=== PATIENT | female | born 1980 | race Caucasian/White ===

== ENCOUNTER 2017-06-27 09:02 | Outpatient (CLI) | payer OTHER | END 2017-06-27 09:03 | disposition home or self-care (01) | LOC: BICMAMMO 09:02 | PROVIDERS: ATTEND Obstetrics & Gynecology | DX: N64.4 Mastodynia (principal); Z98.82 Breast implant status | CPT/HCPCS: 77066; G0279 ==

== ENCOUNTER 2018-03-27 23:46 | Emergency (ER) | payer BC ==
[2018-03-28 01:10] LABS: Bilirubin Negative (Negative); Blood, Urine Trace (Negative); Clarity CLEAR (Clear); Glucose, Urine (Dipstick) Negative (Negative); Leukocyte Negative (Negative); Nitrite Negative (Negative); Protein, Urine (Dipstick) Negative (Neg-Trace); Specific Gravity, Urine 1.022 (1.002-1.036); pH, Urine 6.5 (5.0-9.0)
[2018-03-28 01:11] LABS: Pregnancy Test - Urine (BHCG) Negative (Negative); Pregu Control Background? CLEAR/WHITE (CLR/WHITE); Pregu Control Bar Appear? YES (CONTROL BAR); Specific Gravity 1.022 (1.002-1.036)
[2018-03-28 01:12] LABS: Bacteria/HPF 1+ HPF (None Seen); Hyaline Casts/LPF 0-3 HYALINE CAST LPF (0-3 Hyaline); Pathc Cast-AUWi Flag 0.14 (0-2.49); WBC/HPF 0-3 HPF (0-3)
[2018-03-28] MEDS ORDERED: Cyclobenzaprine 10 MG TAB ONE (01:30)
--- NOTE | 2018-03-28 08:35 | RAD ---
PA AND LATERAL VIEWS CHEST: Date: 03/28/18 HISTORY: Dyspnea. FINDINGS: Comparison made with exam of 08/30/14. The heart size is borderline. The lungs are expanded without focal areas of consolidation, pneumothor ax, odell pulmonary edema, or pleural effusions. No acute osseous abnormalities are seen. IMPRESSION: No radiographic evidence of acute cardiopulmonary process. POS: [facility]
== END 2018-03-28 01:41 | disposition home or self-care (01) ==
LOC: ERS 23:46
DX: M54.9 Dorsalgia, unspecified (principal); R06.00 Dyspnea, unspecified
CPT/HCPCS: 71046; 81003; 81015; 81025; 93005

== ENCOUNTER 2020-05-05 12:16 | Outpatient (CLI) | payer OTHER ==
--- NOTE | 2020-05-05 13:14 | RAD ---
PA AND LATERAL VIEWS CHEST: HISTORY: Cough. COMPARISON: 03/28/2018. FINDINGS: The heart size is normal. The lungs are expanded without lobar consolidation, pneumothoraces, or ple ural effusions. No acute osseous abnormalities are seen. IMPRESSION: No radiographic evidence of acute cardiopulmonary process. POS: [facility]
== END 2020-05-05 12:17 | disposition home or self-care (01) ==
LOC: BICRAD 12:16
PROVIDERS: ATTEND Internal Medicine
DX: R05 Cough (principal)
CPT/HCPCS: 71046

== ENCOUNTER 2024-02-21 20:11 | Emergency (ER) | payer OTHER | END 2024-02-22 00:11 | disposition home or self-care (01) | LOC: ERS 20:11 | DX: N64.4 Mastodynia (principal) ==